=== PATIENT | male | born 2000 | race Asian ===

== ENCOUNTER 2020-12-14 11:46 | Emergency (ER) | payer SELFPAY ==
[2020-12-14 13:51] VITALS: BP 107/70
--- NOTE | 2020-12-14 13:56 | Emergency Department Report ---
Chief Complaint: Extremity Injury, Upper Stated Complaint: BLOOD CLOT IN NAIL Time Seen by Provider: 12/14/20 13:55 - HPI History of Present Illness: Is a healthy 21-year-old male who smashed his finger in a car door. He has small amount of bruising at the nailbed. No swelling or deformity to indicate fracture. Patient given supportive care instructions [id number] NSAIDs and ice. Patient does not have a limb organ or life threatening condition which needs further treatment. Patient discharged after medical screening exam. - Exam Vital Signs: Vital Signs 12/14/20 13:50 Temperature 98 F Pulse Rate 61 Respiratory 16 Rate Blood Pressure 107/70 [Right] O2 Sat by Pulse 99 Oximetry MSE screening note: Focused history and physical exam performed. Due to findings the following was ordered: ED Disposition for MSE Clinical Impression: Encounter for medical screening examination Disposition: DC-01 TO HOME OR SELFCARE Is pt being admited?: No Does the pt Need Aspirin: No Condition: Stable Instructions: Medical Screening Exam
== END 2020-12-14 13:56 | disposition home or self-care (01) ==
LOC: ED 11:46
DX: S60.021A Contusion of right index finger without damage to nail, initial encounter (principal); W22.8XXA Striking against or struck by other objects, initial encounter; Y93.89 Activity, other specified; Y92.89 Other specified places as the place of occurrence of the external cause; Y99.8 Other external cause status
CPT/HCPCS: 99281